=== PATIENT | female | born 1960 | race Caucasian/White ===

== ENCOUNTER → 2018-04-25 | Day surgery (SDC) | payer OTHER ==
[~2018-04-25] MED LIST: ACETAMINOPHEN 1000 MG/100 ML IV ONE; BUPIVACAINE 0.25% 30ML SDV INJ ONE; CEFAZOLIN SOD 1 GM/NS 50ML 50 ML IV ONE; DEXAMETHASONE SOD PHOS INJ 4 MG/ML VIAL ONE; FENTANYL CITRATE/PF 100MCG/2 ML INJ ONE; KETOROLAC TROMETHAMINE 30 MG/ML VIAL ONE; LIDOCAINE HCL 2% LOCAL INJ 5 ML SDV VIAL INJ ONE; MIDAZOLAM HCL 2 MG/2 ML VIAL ONE; ONDANSETRON HCL INJ 2MG/ML 2ML 2 MG/ML VIAL ONE; PROPOFOL IV EMULSION 10 MG/ML 20 ML VIAL ONE; SEVOFLURANE INHAL SOLN 250 ML PEN BTL ONE; VIMOVO PO
[2018-04-25 09:15] VITALS: BP 144/93
--- NOTE | 2018-04-25 09:25 | Operative Report ---
DATE OF PROCEDURE: April 25, 2018 PREOPERATIVE DIAGNOSES 1. Right heel spur with plantar fasciitis. 2. Right plantar fasciotomy with excision of heel spur. SURGEON: Dr. Earl DPM MANAGER QUALITY SYSTEMS: Zackery Herman DPM ANESTHESIA: General with a postoperative block consisting of 10 mL of 0.5% Marcaine plain mixed with 1 mL of dexamethasone phosphate. HEMOSTASIS: Pneumatic thigh tourniquet set at 350 mmHg for a total time of approximately 15 minutes. MATERIALS: 3-0 Vicryl, 4-0 Prolene. PATHOLOGY: None. PROCEDURE IN DETAIL: Patient was seen in the preoperative waiting room where the correct procedure and site was identified. The patient was brought to the operating room and placed on the operating table in the supine position. General anesthesia was initiated at this time. A well-padded pneumatic tourniquet was placed about the patient's right thigh. The right ankle and leg was then scrubbed, prepped draped in the usual aseptic manner. Attention was directed to the medial aspect of the patient's right heel where a 3 cm linear incision was made at the medial plantar aspect of the patient's right heel. The incision was carried through subcutaneous tissues them from deeper underlying structures. All vital neurovascular were identified and retracted dorsally and plantarly. All bleeders were cauterized or ligated as deemed necessary. At this time, the plantar fascia was identified, and a fasciotomy was performed approximately one-third to one-half of the level of the plantar fascia. The heel spur was identified and excised utilizing an osteotome and mallet. It was removed utilizing a rongeur and smoothed with a bone rasp. The findings were then confirmed via intraoperative fluoroscopy. The wound was then flushed with copious amounts of sterile saline. Capsule and deep tissue were reapproximated with 3-0 Vicryl. Subcutaneous tissue with 3-0 Vicryl and skin was closed using a running interlocking stitch of 4-0 Prolene. Prior to wound closure, per photographers' model protocol, 1 TLS drain was placed and was noted to be functioning and intact. The patient tolerated the procedure and anesthesia well. Patient was transferred to the postoperative recovery with vital signs stable and vascular status intact. Patient was monitored there for a short period of time before being sent home with the following written and instructions; 1. Keep the dressing clean, dry and tact. 2. The patient is to remain nonweightbearing to the right lower extremity and to avoid any ambulation until being seen in the office. 3. Patient was given the office number and instructed to contact us if any problems should arise. DICTATED BY ZACKERY HERMAN DPM Job#: [id number] [place]
== END | disposition home or self-care (01) ==
LOC: OR 05:21
PROVIDERS: ATTEND Podiatrist Foot & Ankle Surgery
DX: M77.31 Calcaneal spur, right foot (principal); M72.2 Plantar fascial fibromatosis; R00.1 Bradycardia, unspecified; F41.9 Anxiety disorder, unspecified; Z01.810 Encounter for preprocedural cardiovascular examination; Z96.643 Presence of artificial hip joint, bilateral
CPT/HCPCS: 28119; 93005; J0131; J0690; J1100; J1885; J2001; J2250; J2405; J2704